=== PATIENT | female | born 1955 | race Caucasian/White ===

== ENCOUNTER 2017-12-27 18:35 | Emergency (ER) | payer BC, OTHER ==
[~2017-12-27] VITALS: Ht 172.7 cm; Wt 91.0 kg
[~2017-12-27 18:35] MED LIST: AMIT10TA PO; HYDR25TA6 PO; VERA240C2 PO
[2017-12-27 20:04] LABS: BASOPHILS # (AUTO) 0.01 x10^3/uL (0-0.1); BASOPHILS % (AUTO) 0 % (0-1); EOSINOPHILS # (AUTO) 0.18 x10^3/uL (0-0.4); EOSINOPHILS % (AUTO) 2 % (1-7); LYMPHOCYTES # (AUTO) 2.35 x10^3/uL (1-3.4); LYMPHOCYTES % (AUTO) 22 % (22-44); MD NO; MEAN CORPUSCULAR HEMOGLOBIN 28.5 pg (27.0-34.8); MEAN CORPUSCULAR HGB CONC 32.6 g/dL (32.4-35.8); MEAN CORPUSCULAR VOLUME 87.4 fL (80-100); MONOCYTES # (AUTO) 0.25 x10^3/uL (0.2-0.8); MONOCYTES % (AUTO) 2 % (2-9); NEUTROPHILS % (AUTO) 74 % (42-75); PLATELET COUNT 309 x10^3/uL (130-400); RED BLOOD COUNT 5.22 x10^6/uL (3.82-5.3)
[2017-12-27 20:14] LABS: ANION GAP 5 mmol/L (5-15); CALCIUM 8.3 mg/dL (8.5-10.1); CHLORIDE 110 mmol/L (98-107); CREATININE 0.83 mg/dL (0.55-1.02)
[2017-12-27 20:15] LABS: ALBUMIN 3.4 g/dL (3.4-5.0)
[2017-12-27 21:19] VITALS: BP 209/90
== END 2017-12-27 21:17 | disposition home or self-care (01) ==
LOC: ED 21:11
DX: I80.01 Phlebitis and thrombophlebitis of superficial vessels of right lower extremity (principal); I10 Essential (primary) hypertension
CPT/HCPCS: 36415; 80048; 82040; 85025; 99285

== ENCOUNTER 2019-12-03 20:29 | Emergency (ER) | payer MEDICAID ==
[~2019-12-03] VITALS: Ht 172.7 cm; Wt 96.0 kg
[2019-12-03 20:34] VITALS: BP 196/88
--- NOTE | 2019-12-03 21:38 | NUR ---
PT MOVED TO ROOM FROM LOBBY. AWAITING ERMD ASSESSMENT.
--- NOTE | 2019-12-03 21:50 | NUR ---
REPORT GIVEN RAYMON KNUTSON.
--- NOTE | 2019-12-03 21:58 | NUR ---
REPORT FROM EAMON ROMAN. PT SITTING UP IN [facility] NOTED. SURGICAL MARKER USED TO OUTLINE ERYTHEMATOUS REGION ON LUE. PT REPORTS AREA ITCHES AND "IS GETTING WORSE" DESPITE PRESCRIPTIONS RX'D THIS AM.
[2019-12-03] MEDS ORDERED: SULFAMETH./TRIMETHOPRIM DS 800MG/160MG TABLET ONE (22:23)
[2019-12-03] MEDS ORDERED: CEPHALEXIN 500 MG CAPSULE ONE (22:23)
[2019-12-03] MEDS ORDERED: SULFAMETH./TRIMETHOPRIM DS 800MG/160MG TABLET PO ONE (22:30)
[2019-12-03] MEDS ORDERED: CEPHALEXIN 500 MG CAPSULE PO ONE (22:30)
--- NOTE | 2019-12-03 22:37 | NUR ---
NO S/S OF ABX RXN NOTED. DC EDUCATION PROVIDED, PT DEMONSTRATES UNDERSTANDING. PT AMBULATED STEADILY TO DC W RN AND FAMILY MEMBER.
[2019-12-04] MEDS ORDERED: TRIA60LO9 TP (11:50)
[2019-12-04] MEDS ORDERED: HYDR-826 PO (11:50)
[2019-12-04] MEDS ORDERED: CHLO25TA PO (11:50)
[2019-12-04] MEDS ORDERED: ANAS1TAB49 PO (11:50)
== END 2019-12-03 22:39 | disposition home or self-care (01) ==
LOC: ED 22:20
DX: L03.114 Cellulitis of left upper limb (principal); M79.89 Other specified soft tissue disorders; Z88.1 Allergy status to other antibiotic agents
CPT/HCPCS: 99283

== ENCOUNTER 2019-12-04 08:16 | Inpatient (IN) | payer MEDICAID ==
[~2019-12-04] VITALS: Ht 172.7 cm; Wt 98.5 kg
[2019-12-04] MEDS ORDERED: SODIUM CHLORIDE FLUSH 10ML SYR IVF ONE (09:00)
[2019-12-04] MEDS ORDERED: SODIUM CHLORIDE 0.9% 1,000ML IVBOLUS ONE (09:00)
[2019-12-04] MEDS ORDERED: AMPICILLIN/SULBACTAM 3 GM in SODIUM CHLORIDE 0.9% 100 ML IV ONE (09:00)
--- NOTE | 2019-12-04 09:22 | NUR ---
PT AMBULATORY TO ROOM 6 W/ C/O LUE CELLULITIS STARTED 12/02/2019. PT STATES NO ISSUES PRIOR. PT WAS SEEN HERE YESTERDAY AND ALSO SAW HER PCP. PT WAS PROVIDED W/ ABX RX BUT HAS NOT FILLED THEM. PT ALSO NOTED TO HAVE BILAT REDNESS TO BLE. PT RESTING ON GURNEY. NADN. MONITORS APPLIED. PIV INITIATED AND PT MEDICATED PER JUN.
[2019-12-04 09:32] LABS: ALBUMIN 3.5 g/dL (3.4-5.0); ANION GAP 12 mmol/L (5-15); CALCIUM 8.7 mg/dL (8.5-10.1); CHLORIDE 100 mmol/L (98-107); CREATININE 1.18 mg/dL (0.55-1.02)
--- NOTE | 2019-12-04 09:49 | NUR ---
TASK RN: UNASYN ABX INFUSION COMPLETE. VSS ON NIBP/POX PROVIDER MADE AWARE OF ELEVATED LACTATE/HYPOKALEMIA
--- NOTE | 2019-12-04 09:59 | NUR ---
CHART REVIEWED; PT CARE TO BE ASSUMED.
--- NOTE | 2019-12-04 10:02 | NUR ---
REPORT TO EAMON PATEL.
[2019-12-04 10:09] LABS: BASOPHILS % (AUTO) 0 % (0-1); EOSINOPHILS # (AUTO) 0.13 x10^3/uL (0-0.4); EOSINOPHILS % (AUTO) 1 % (1-7); LYMPHOCYTES # (AUTO) 0.49 x10^3/uL (1-3.4); LYMPHOCYTES % (AUTO) 4 % (22-44); MD NO; MEAN CORPUSCULAR HEMOGLOBIN 28.7 pg (27.0-34.8); MEAN CORPUSCULAR HGB CONC 33.5 g/dL (32.4-35.8); MEAN CORPUSCULAR VOLUME 85.7 fL (80-100); MEAN PLATELET VOLUME 9.1 fL (7.4-10.4); MONOCYTES # (AUTO) 0.36 x10^3/uL (0.2-0.8); MONOCYTES % (AUTO) 3 % (2-9); NEUTROPHILS # (AUTO) 11.34 x10^3/uL (1.8-6.8); NEUTROPHILS % (AUTO) 92 % (42-75); PLATELET COUNT 307 x10^3/uL (130-400); RED BLOOD COUNT 5.12 x10^6/uL (3.82-5.3); RED CELL DISTRIBUTION WIDTH 14.8 % (9.6-15.2)
[2019-12-04] MEDS ORDERED: POTASSIUM CHLORIDE 20 MEQ PACKET PO ONE (10:30)
[2019-12-04] MEDS ORDERED: VANCOMYCIN PER PHARMACY MC PRN (10:30)
[2019-12-04] MEDS ORDERED: VANCOMYCIN 2,300 MG in SODIUM CHLORIDE 0.9% 500 ML IV ONE (10:45)
[2019-12-04] MEDS ORDERED: SODIUM CHLORIDE 0.9%, 500ML IVBOLUS ONE (11:00)
[2019-12-04] MEDS ORDERED: NS + 20MEQ KCL 1,000 ML IV SCH (11:00)
--- NOTE | 2019-12-04 11:47 | NUR ---
MULTIPLE ORDERS INVOLVING POTASSIUM; WILL CLARIFY WITH PROVIDERS
[2019-12-04] MEDS ORDERED: CHLO25TA PO (11:50)
[2019-12-04] MEDS ORDERED: ANAS1TAB49 PO (11:50)
[2019-12-04] MEDS ORDERED: TRIA60LO9 TP (11:50)
[2019-12-04] MEDS ORDERED: HYDR-826 PO (11:50)
[2019-12-04] MEDS ORDERED: POTASSIUM CHLORIDE 40 MEQ in SODIUM CHLORIDE 0.9% 500 ML IV ONE (12:00)
[2019-12-04] MEDS ORDERED: POTASSIUM CHLORIDE 20 MEQ PACKET ONE (12:07)
[2019-12-04] MEDS ORDERED: SODIUM CHLORIDE 0.9% 1,000 ML IV ONE ×2 (12:30→14:30)
--- NOTE | 2019-12-04 12:30 | NUR ---
POTASSIUM 40MEQ PO GIVEN AND NS HUNG PER EMAR. IV SITE PATENT. VANCO HUNG AT 1230, INFUSING AT 200ML/HR VIA PUMP.
--- NOTE | 2019-12-04 13:16 | NUR ---
PT REPORT TO EAMON MERRITT FOR ROOM 439. PER RENÉ, ROOM NOT READY.
--- NOTE | 2019-12-04 14:22 | NUR ---
CALLED RECEIVING FLOOR; ROOM READY FOR PT.
[2019-12-04] MEDS ORDERED: ONDANSETRON 2MG/ML, 2ML IVPush PRN (14:30)
[2019-12-04] MEDS ORDERED: morphine SULFATE 10 MG/ML, 1ML IVPush PRN (14:30)
[2019-12-04] MEDS ORDERED: PROMETHAZINE 25 MG/ML, 1ML IM PRN (14:30)
[2019-12-04] MEDS ORDERED: hydrALAzine 20 MG/ML, 1ML IVPush PRN (14:30)
[2019-12-04] MEDS ORDERED: LABETALOL 5MG/ML, 20ML IVPush PRN (14:30)
[2019-12-04] MEDS ORDERED: ACETAMINOPHEN 325 MG TABLET PO PRN (14:30)
[2019-12-04 15:17] VITALS: BP 140/87
[2019-12-04 16:07] VITALS: BP 137/79
[2019-12-04 16:14] LABS: ANION GAP 8 mmol/L (5-15); CALCIUM 8.3 mg/dL (8.5-10.1); CHLORIDE 103 mmol/L (98-107)
[2019-12-04] MEDS ORDERED: MAGNESIUM SULFATE PMX 2GM/50ML 50 ML IV ONE (16:30)
[2019-12-04] MEDS: AMPICILLIN/SULBACTAM 1,500 MG in SODIUM CHLORIDE 0.9% 50 ML IV SCH ×3 (17:09→23:09)
[2019-12-04] MEDS: HEPARIN 5,000 UNITS/ML, 1ML SQ SCH ×2 (17:24→23:13)
[2019-12-04] MEDS: POTASSIUM CHLORIDE 20 MEQ TAB.ER.PRT PO SCH (17:24)
[2019-12-04 19:03] VITALS: BP 144/81
[2019-12-04] MEDS ORDERED: SODIUM CHLORIDE 0.9% 1,000 ML IV SCH (20:00)
[2019-12-04 22:17] LABS: ANION GAP 5 mmol/L (5-15); CALCIUM 8.2 mg/dL (8.5-10.1); CHLORIDE 104 mmol/L (98-107); CREATININE 0.88 mg/dL (0.55-1.02)
[2019-12-05 00:14] VITALS: BP 139/67
[2019-12-05] MEDS: AMPICILLIN/SULBACTAM 1,500 MG in SODIUM CHLORIDE 0.9% 50 ML IV SCH ×4 (04:57→23:34)
[2019-12-05 05:05] LABS: BASOPHILS # (AUTO) 0.01 x10^3/uL (0-0.1); BASOPHILS % (AUTO) 0 % (0-1); EOSINOPHILS # (AUTO) 0.25 x10^3/uL (0-0.4); EOSINOPHILS % (AUTO) 3 % (1-7); LYMPHOCYTES # (AUTO) 1.26 x10^3/uL (1-3.4); LYMPHOCYTES % (AUTO) 16 % (22-44); MD NO; MEAN CORPUSCULAR HEMOGLOBIN 28.5 pg (27.0-34.8); MEAN CORPUSCULAR HGB CONC 33.1 g/dL (32.4-35.8); MEAN CORPUSCULAR VOLUME 86.1 fL (80-100); MEAN PLATELET VOLUME 8.7 fL (7.4-10.4); MONOCYTES # (AUTO) 0.49 x10^3/uL (0.2-0.8); MONOCYTES % (AUTO) 6 % (2-9); NEUTROPHILS # (AUTO) 5.99 x10^3/uL (1.8-6.8); NEUTROPHILS % (AUTO) 75 % (42-75); PLATELET COUNT 226 x10^3/uL (130-400); RED BLOOD COUNT 4.34 x10^6/uL (3.82-5.3); RED CELL DISTRIBUTION WIDTH 15.1 % (9.6-15.2)
[2019-12-05 05:08] LABS: CHLORIDE 106 mmol/L (98-107)
[2019-12-05 05:15] LABS: ALANINE AMINOTRANSFERASE 25 U/L (12-78); ALBUMIN 2.8 g/dL (3.4-5.0); ALKALINE PHOSPHATASE 75 U/L (45-117); ANION GAP 6 mmol/L (5-15); BILIRUBIN,TOTAL 0.5 mg/dL (0.2-1.0); CALCIUM 7.6 mg/dL (8.5-10.1); CREATININE 0.73 mg/dL (0.55-1.02); TOTAL PROTEIN 5.9 g/dL (6.4-8.2)
[2019-12-05] MEDS: HEPARIN 5,000 UNITS/ML, 1ML SQ SCH ×3 (07:43→23:34)
[2019-12-05] MEDS: POTASSIUM CHLORIDE 20 MEQ TAB.ER.PRT PO SCH ×2 (07:43→16:37)
[2019-12-05 08:02] VITALS: BP 140/82
[2019-12-05] MEDS: ANASTROZOLE 1 MG TABLET PO SCH (09:05)
[2019-12-05] MEDS ORDERED: POTASSIUM CHLORIDE 40 MEQ in SODIUM CHLORIDE 0.9% 500 ML IV ONE (10:00)
[2019-12-05] MEDS ORDERED: FUROSEMIDE 40 MG TABLET PO SCH (10:00)
[2019-12-05 14:37] VITALS: BP 125/82
[2019-12-05 18:22] VITALS: BP 142/85
[2019-12-06 00:42] VITALS: BP 138/75
[2019-12-06] MEDS: AMPICILLIN/SULBACTAM 1,500 MG in SODIUM CHLORIDE 0.9% 50 ML IV SCH ×2 (04:48→11:12)
[2019-12-06 05:32] LABS: BASOPHILS % (AUTO) 1 % (0-1); EOSINOPHILS # (AUTO) 0.44 x10^3/uL (0-0.4); EOSINOPHILS % (AUTO) 5 % (1-7); LYMPHOCYTES % (AUTO) 21 % (22-44); MD NO; MEAN CORPUSCULAR HEMOGLOBIN 28.3 pg (27.0-34.8); MEAN CORPUSCULAR HGB CONC 32.6 g/dL (32.4-35.8); MEAN PLATELET VOLUME 8.9 fL (7.4-10.4); MONOCYTES # (AUTO) 0.78 x10^3/uL (0.2-0.8); MONOCYTES % (AUTO) 9 % (2-9); NEUTROPHILS # (AUTO) 5.86 x10^3/uL (1.8-6.8); NEUTROPHILS % (AUTO) 65 % (42-75); PLATELET COUNT 229 x10^3/uL (130-400); RED BLOOD COUNT 4.43 x10^6/uL (3.82-5.3); RED CELL DISTRIBUTION WIDTH 15.2 % (9.6-15.2)
[2019-12-06 05:38] LABS: ALBUMIN 2.7 g/dL (3.4-5.0); ANION GAP 4 mmol/L (5-15); CALCIUM 8.3 mg/dL (8.5-10.1); CHLORIDE 107 mmol/L (98-107)
[2019-12-06 05:43] LABS: ALANINE AMINOTRANSFERASE 23 U/L (12-78); ALKALINE PHOSPHATASE 76 U/L (45-117); BILIRUBIN,TOTAL 0.5 mg/dL (0.2-1.0); CREATININE 0.73 mg/dL (0.55-1.02); TOTAL PROTEIN 6.3 g/dL (6.4-8.2)
[2019-12-06 06:17] VITALS: BP 147/73
[2019-12-06] MEDS ORDERED: FUROSEMIDE 20 MG TABLET PO SCH (09:00)
[2019-12-06] MEDS ORDERED: AMOX1TAB64 PO (09:53)
[2019-12-06] MEDS ORDERED: FURO20TA3 PO (09:53)
[2019-12-06] MEDS ORDERED: DOXY100T PO (09:53)
[2019-12-06] MEDS ORDERED: POTA20TA6 PO (09:53)
[2019-12-06] MEDS: POTASSIUM CHLORIDE 20 MEQ TAB.ER.PRT PO SCH (10:01)
[2019-12-06] MEDS: ANASTROZOLE 1 MG TABLET PO SCH (10:11)
[2019-12-06] MEDS: HEPARIN 5,000 UNITS/ML, 1ML SQ SCH (10:13)
== END 2019-12-06 12:21 | disposition home or self-care (01) | DRG 720 ==
LOC: ED 09:27 → EDIP 10:45 → 4NW 14:38 → DCLOUNGE 12-06 12:11
PROVIDERS: ADMIT Internal Medicine; ATTEND Internal Medicine
DX: A41.9 Sepsis, unspecified organism (principal); E66.9 Obesity, unspecified; E87.6 Hypokalemia; I10 Essential (primary) hypertension; R73.9 Hyperglycemia, unspecified; I87.8 Other specified disorders of veins; L03.114 Cellulitis of left upper limb; N17.0 Acute kidney failure with tubular necrosis; R65.20 Severe sepsis without septic shock; Z80.3 Family history of malignant neoplasm of breast; Z85.3 Personal history of malignant neoplasm of breast; Z90.710 Acquired absence of both cervix and uterus; Z88.1 Allergy status to other antibiotic agents; Z68.33 Body mass index [BMI] 33.0-33.9, adult
CPT/HCPCS: 36415; 80048; 80053; 82040; 83036; 83605; 83735; 85025; 87040; 96365; G0378; J0295; J1644; J3370; J3480; J3475; J7030; J7040; Q0177

== ENCOUNTER 2019-12-16 14:55 | Emergency (ER) | payer MEDICAID ==
[~2019-12-16] VITALS: Ht 172.7 cm; Wt 96.0 kg
[~2019-12-16 14:55] MED LIST changes: +AMOX1TAB64 PO; +ANAS1TAB49 PO; +CHLO25TA PO; +DOXY100T PO; +FURO20TA3 PO; +HYDR-826 PO; +POTA20TA6 PO; +TRIA60LO9 TP
--- NOTE | 2019-12-16 16:05 | NUR ---
CELLULITIS TO LT WRIST, LT UPPER ARM, LT LOWER LEG. APPLIED APPLE CIDER VINEGAR, RX LOTION (NAME UNKNOWN); NO RELIEF.
[2019-12-16 16:12] VITALS: BP 143/84
[2019-12-16] MEDS ORDERED: CHLO25TA PO (16:12)
== END 2019-12-16 16:20 | disposition home or self-care (01) ==
LOC: ED 16:19
DX: S40.862A Insect bite (nonvenomous) of left upper arm, initial encounter (principal); S80.862A Insect bite (nonvenomous), left lower leg, initial encounter; L03.114 Cellulitis of left upper limb; L03.116 Cellulitis of left lower limb; I10 Essential (primary) hypertension; W57.XXXA Bitten or stung by nonvenomous insect and other nonvenomous arthropods, initial encounter; Y93.89 Activity, other specified; Y92.89 Other specified places as the place of occurrence of the external cause; Y99.8 Other external cause status
CPT/HCPCS: 99283